=== PATIENT | female | born 1980 | race Hispanic/Latino ===

== ENCOUNTER 2023-09-14 18:51 | Inpatient (IN) | payer BC, OTHER, SELFPAY ==
[~2023-09-14 18:51] MED LIST: Iopamidol 370 76% 100 ML VIAL ONE
[2023-09-14] MEDS ORDERED: Furosemide 100 MG/10 ML VIAL ONE (19:27)
[2023-09-14] MEDS ORDERED: Ondansetron PF 4 MG/2 ML Vial IVP PRN (19:29)
[2023-09-14] MEDS ORDERED: Acetaminophen 325 MG TAB PO PRN (19:29)
[2023-09-14] MEDS ORDERED: Senokot S 8.6-50 MG TAB PO PRN (19:29)
[2023-09-14] MEDS ORDERED: Calcium Carbonate 500 MG ChewTAB PO PRN (19:29)
[2023-09-14] MEDS ORDERED: Ipratropium/Albuterol 3 ML NEB NEB PRN (19:32)
[2023-09-14] MEDS ORDERED: hydrOXYzine 10 MG TAB PO PRN (19:34)
[2023-09-14] MEDS ORDERED: LevoFLOXacin 750 mg/D5W 150 ml Premix Bag ONE (20:36)
[2023-09-14] MEDS ORDERED: LevoFLOXacin 750 mg/D5W 750 MG in Premix 1 BAG IVPB SCH (21:00)
[2023-09-14 23:09] LABS: Bilirubin Neg (Negative); Blood, Urine 25 (Negative); Glucose, Urine (Dipstick) Normal (Negative); Ketone, Urine Negative (Negative); Leukocyte Negative (Negative); Nitrite Negative (Negative); Protein, Urine (Dipstick) Negative (Neg-Trace); Urobilinogen Normal mg/dL (Less than 2); pH, Urine 6.5 (5.0-9.0)
[2023-09-14 23:11] LABS: Pregnancy Test - Urine (BHCG) Negative (Negative); Pregu Control Bar Appear? YES (CONTROL BAR)
[2023-09-14 23:12] LABS: Pregu Control Background? CLEAR/WHITE (CLR/WHITE)
[2023-09-14 23:13] LABS: Clarity Clear (Clear)
[2023-09-14 23:24] LABS: Legionella Urinary Ag Negative (Negative); Strep pneumo Urine Ag NEGATIVE (NEGATIVE)
[2023-09-14 23:26] LABS: Bacteria/HPF None Seen HPF (None Seen); RBC/HPF 0-3 HPF (0-3); Squamous Epithelial 0-3 HPF (0-3); WBC/HPF None Seen HPF (0-3)
[2023-09-15 01:11] VITALS: BMI 81.6
[2023-09-15] MEDS ORDERED: Gabapentin 300 MG CAP PO SCH ×2 (01:30→09:00)
[2023-09-15] MEDS: tiZANidine HCl 4 MG TAB PO PRN ×2 (01:45→20:29)
[2023-09-15 01:53] LABS: SARS-CoV-2 NAA Rapid Test Not Detected (NotDetected)
[2023-09-15 02:50] LABS: #Monocytes 0.2 10x3/uL (0.0-1.1); #Neutrophils 8.6 10x3/uL (1.5-8.4); %Basophils 0.2 % (0.0-2.0); %Lymphocytes 11.2 % (18.0-47.0); %Monocytes 1.5 % (0.0-10.0); %Neutrophils 86.3 % (40.0-75.0); Hematocrit 39.3 % (34.9-44.5); Hemoglobin 11.7 g/dL (12.0-15.5); Mean Corpuscular HGB CONC 29.8 g/dL (32.0-36.0); Mean Corpuscular Hemoglobin 25.1 pg (27.0-33.0); Mean Corpuscular Volume 84.2 fl (81.6-98.3); Mean Platelet Volume 9.3 fl (7.4-10.4); Platelet Count 338 10x3/uL (150-450); RBC Distribution Width 15.7 % (11.5-14.5); Red Blood Cell (RBC) Count 4.67 10x6/uL (3.90-5.03)
[2023-09-15 03:00] LABS: Actual Bicarbonate (HCO3v) 35.4 mEq/L (22-28); Analyzer IN Cardio CS ICU; Base Excess 10.3 mEq/L (-2 - +2); Calcium, Ionized (venous) 1.07 mmol/L (1.16-1.32); Chloride (VBG) 95 mmol/L (98-106); Hematocrit-VBG 37 % (36.0-47.0); Hemoglobin (Hb) 12.6 g/dL (11.7-15.5); Potassium (VBG) 4.18 mmol/L (3.70-5.30); Puncture Site Other Site; RapidComm Collect By lab; Sodium 139 mmol/L (133-146); pH (venous) 7.474 (7.32-7.43)
[2023-09-15 03:05] LABS: Anion Gap 16 mmol/L (10-20); BUN (Urea Nitrogen) 15 mg/dL (7.0-18.7); Calc. Creatinine Clearance 267 mL/min (70-130); Calcium 9.6 mg/dL (7.8-10.44); Carbon Dioxide 31 mmol/L (22-29); Chloride 96 mmol/L (98-107); Estimated GFR 85; Glucose 149 mg/dL (70-105); Potassium 4.2 mmol/L (3.5-5.1); Sodium 139 mmol/L (136-145)
[2023-09-15] MEDS: Furosemide 40 MG/4 ML VIAL SLOW IVP SCH ×2 (05:54→14:47)
[2023-09-15] MEDS: Mometasone/Formoterol 200/5 60 PUFF INH SCH ×2 (07:05→19:04)
[2023-09-15] MEDS ORDERED: methylPREDNISolone Sod Succ/PF 125 MG/2 ML VIAL IVP SCH (08:00)
[2023-09-15] MEDS: methylPREDNISolone Sod Succ 40 MG VIAL IVP SCH (08:10)
[2023-09-15] MEDS: BuPROPion XL 150 MG ER.TAB PO SCH (08:11)
[2023-09-15] MEDS: FLUoxetine HCl 20 MG CAP PO SCH (08:11)
[2023-09-15] MEDS: Oxybutynin 5 MG TAB PO SCH (09:36)
[2023-09-15] MEDS: Ipratropium/Albuterol 3 ML NEB NEB SCH ×2 (14:00→19:05)
[2023-09-15] MEDS: Gabapentin 300 MG CAP PO SCH ×2 (14:47→20:28)
[2023-09-15] MEDS: HYDROcodone/Acetaminophen 5/325 mg Tablet PO PRN ×2 (14:55→20:28)
[2023-09-15] MEDS: Guaifenesin DM 100-10/5 ML UDCUP PO PRN (14:56)
[2023-09-16] MEDS: Ipratropium/Albuterol 3 ML NEB NEB SCH ×4 (00:37→19:05)
[2023-09-16] MEDS: Guaifenesin DM 100-10/5 ML UDCUP PO PRN ×3 (03:57→15:05)
[2023-09-16] MEDS: HYDROcodone/Acetaminophen 5/325 mg Tablet PO PRN ×2 (03:57→20:41)
[2023-09-16 04:43] LABS: #Monocytes 1.1 10x3/uL (0.0-1.1); #Neutrophils 12.7 10x3/uL (1.5-8.4); %Basophils 0.2 % (0.0-2.0); %Eosinophils 0.1 % (0.0-6.0); %Lymphocytes 15.7 % (18.0-47.0); %Monocytes 6.4 % (0.0-10.0); %Neutrophils 76.4 % (40.0-75.0); Hematocrit 40.3 % (34.9-44.5); Hemoglobin 11.8 g/dL (12.0-15.5); Mean Corpuscular HGB CONC 29.3 g/dL (32.0-36.0); Mean Corpuscular Hemoglobin 24.9 pg (27.0-33.0); Mean Corpuscular Volume 85.2 fl (81.6-98.3); Mean Platelet Volume 9.2 fl (7.4-10.4); Platelet Count 376 10x3/uL (150-450); RBC Distribution Width 15.9 % (11.5-14.5); Red Blood Cell (RBC) Count 4.73 10x6/uL (3.90-5.03); White Blood Cell (WBC) Count 16.6 10x3/uL (3.5-10.5)
[2023-09-16 05:14] LABS: Troponin I 0.034 ng/mL (< 0.028)
[2023-09-16] MEDS: Furosemide 40 MG/4 ML VIAL SLOW IVP SCH (05:29)
[2023-09-16 05:37] LABS: Anion Gap 18 mmol/L (10-20); BUN (Urea Nitrogen) 24 mg/dL (7.0-18.7); Calc. Creatinine Clearance 211 mL/min (70-130); Calcium 9.8 mg/dL (7.8-10.44); Carbon Dioxide 37 mmol/L (22-29); Chloride 93 mmol/L (98-107); Estimated GFR 64; Glucose 126 mg/dL (70-105); Potassium 3.9 mmol/L (3.5-5.1); Sodium 144 mmol/L (136-145)
[2023-09-16] MEDS: Oxybutynin 5 MG TAB PO SCH (09:10)
[2023-09-16] MEDS: Mometasone/Formoterol 200/5 60 PUFF INH SCH ×2 (09:10→19:05)
[2023-09-16] MEDS: Gabapentin 300 MG CAP PO SCH ×3 (10:00→20:42)
[2023-09-16] MEDS: FLUoxetine HCl 20 MG CAP PO SCH (10:00)
[2023-09-16] MEDS: BuPROPion XL 150 MG ER.TAB PO SCH (10:01)
[2023-09-16] MEDS: methylPREDNISolone Sod Succ 40 MG VIAL IVP SCH (10:07)
[2023-09-16] MEDS: tiZANidine HCl 4 MG TAB PO PRN (20:43)
[2023-09-17] MEDS: Ipratropium/Albuterol 3 ML NEB NEB SCH ×2 (01:40→07:49)
[2023-09-17 04:09] LABS: #Basophils 0.1 10x3/uL (0.0-0.2); #Eosinphils 0.2 10x3/uL (0.0-0.5); #Monocytes 0.9 10x3/uL (0.0-1.1); #Neutrophils 7.7 10x3/uL (1.5-8.4); %Basophils 0.4 % (0.0-2.0); %Eosinophils 1.9 % (0.0-6.0); %Lymphocytes 29.6 % (18.0-47.0); %Monocytes 6.9 % (0.0-10.0); %Neutrophils 60.4 % (40.0-75.0); Hematocrit 42.4 % (34.9-44.5); Hemoglobin 12.5 g/dL (12.0-15.5); Mean Corpuscular HGB CONC 29.5 g/dL (32.0-36.0); Mean Corpuscular Hemoglobin 25.1 pg (27.0-33.0); Mean Corpuscular Volume 85.1 fl (81.6-98.3); Mean Platelet Volume 9.1 fl (7.4-10.4); Platelet Count 329 10x3/uL (150-450); RBC Distribution Width 15.9 % (11.5-14.5); Red Blood Cell (RBC) Count 4.98 10x6/uL (3.90-5.03); White Blood Cell (WBC) Count 12.7 10x3/uL (3.5-10.5)
[2023-09-17 04:14] LABS: Anion Gap 18 mmol/L (10-20); BUN (Urea Nitrogen) 28 mg/dL (7.0-18.7); Calc. Creatinine Clearance 221 mL/min (70-130); Carbon Dioxide 34 mmol/L (22-29); Chloride 91 mmol/L (98-107); Estimated GFR 68; Glucose 95 mg/dL (70-105); Potassium 3.4 mmol/L (3.5-5.1); Sodium 140 mmol/L (136-145)
[2023-09-17] MEDS: HYDROcodone/Acetaminophen 5/325 mg Tablet PO PRN (04:47)
[2023-09-17] MEDS: Mometasone/Formoterol 200/5 60 PUFF INH SCH (07:52)
[2023-09-17] MEDS ORDERED: predniSONE 50 MG TAB PO SCH (08:00)
[2023-09-17] MEDS: Gabapentin 300 MG CAP PO SCH (08:09)
[2023-09-17] MEDS: Oxybutynin 5 MG TAB PO SCH (08:09)
[2023-09-17] MEDS: FLUoxetine HCl 20 MG CAP PO SCH (08:10)
[2023-09-17] MEDS: BuPROPion XL 150 MG ER.TAB PO SCH (08:11)
[2023-09-17 10:19] VITALS: BP 122/93; TEMP 98.7
== END 2023-09-17 12:05 | disposition home or self-care (01) | DRG 193 ==
LOC: CSHERS 18:51 → CSHIMCU 21:43
PROVIDERS: ADMIT Student in an Organized Health Care Education/Training Program; ATTEND Hospitalist
PROC: 5A09457 Assistance with Respiratory Ventilation, 24-96 Consecutive Hours, Continuous Positive Airway Pressure (ICD-10-PCS; principal; 2023-09-14)
DX: J12.1 Respiratory syncytial virus pneumonia (principal); J96.21 Acute and chronic respiratory failure with hypoxia; J96.22 Acute and chronic respiratory failure with hypercapnia; E66.2 Morbid (severe) obesity with alveolar hypoventilation; J44.1 Chronic obstructive pulmonary disease with (acute) exacerbation; E87.3 Alkalosis; Z68.45 Body mass index [BMI] 70 or greater, adult; K21.9 Gastro-esophageal reflux disease without esophagitis; F41.9 Anxiety disorder, unspecified; F32.A Depression, unspecified; B00.9 Herpesviral infection, unspecified; E07.89 Other specified disorders of thyroid; Z99.81 Dependence on supplemental oxygen; Z79.899 Other long term (current) drug therapy; Z79.51 Long term (current) use of inhaled steroids; Z88.1 Allergy status to other antibiotic agents; Z90.49 Acquired absence of other specified parts of digestive tract; Z98.890 Other specified postprocedural states; Z90.5 Acquired absence of kidney; Z87.891 Personal history of nicotine dependence; Z82.49 Family history of ischemic heart disease and other diseases of the circulatory system; Z11.52 Encounter for screening for COVID-19
CPT/HCPCS: 36415; 36416; 71275; 76705; 80048; 81001; 81025; 82805; 83880; 84145; 84443; 84484; 85025; 87449; 87633; 87798; 87899; 94640; 94660; 94760; 94762; 96374; 96375; 97139; J1650; J1940; J1956; J2920; J7512; J7620; Q9967